=== PATIENT | male | born 1940 ===

== ENCOUNTER 2017-11-12 06:48 | Day surgery (SDC) | payer OTHER ==
[2017-11-07 10:41] VITALS: BMI 29.6
[2017-11-12] MEDS ORDERED: Lidocaine 2% Jelly (Uro-Jet) ONE (07:38)
[2017-11-12] MEDS ORDERED: cefTRIAXone 1 gm 1 GM/100 ML BAG IVPB ONE (07:38)
[2017-11-12] MEDS ORDERED: Midazolam 2 MG/2 ML VIAL ONE (07:59)
[2017-11-12] MEDS ORDERED: Propofol 10 mg/ml Inj (20 ML) ONE (07:59)
[2017-11-12] MEDS ORDERED: Oxycodone/Acetaminophen 5/325 mg Tab PO PRN (08:40)
[2017-11-12 12:40] VITALS: BP 156/76; PULSE 52; RESP 17; TEMP 97.3; O2SAT 98
--- NOTE | 2017-11-12 20:54 | HP ---
REASON FOR ADMISSION: Workup of bladder tumor. HISTORY OF PRESENT ILLNESS: Very pleasant gentleman in lot of voiding dysfunction, just 77-year-old on 11/01/2017. He has voiding dysfunction. We had previously done much work on him. His prostate is fairly open. See previous notes in that regard; however, last cystoscope because he still has complaints, is abnormal area of mucosa and he is here today for TURBT. We need to rule out transitional cell carcinoma or carcinoma in situ. PAST MEDICAL HISTORY AND SURGICAL HISTORY: Listed in the chart. 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 REVIEW OF SYSTEMS: Listed above. Noncontributory. No weight loss, chest pain or shortness of breath. No constitutional complaints. MEDICATIONS: He is on aspirin, losartan and he is on a statin. ALLERGIES: NO ALLERGIES. PHYSICAL EXAMINATION: GENERAL: A well-nourished male, in no apparent distress. VITAL SIGNS: Within normal limits, included in the chart. LUNGS: Clear. HEART: Normal S1 and S2. ABDOMEN: Overall soft. Nontender. No flank mass appreciated. No CVA tenderness. No evidence of acute abdomen. GENITOURINARY: Normal phallus without discharge. No testicular mass. RECTAL: 30 g prostate. Smooth. LABORATORY DATA: See chart. DIAGNOSES: Voiding dysfunction, decreased flow stream, irritating and obstructive complaints of dysuria and a bladder mass. PLAN: Plan for a cystoscope with anesthesia, bladder biopsy and fulguration and a TURBT, then further plans will follow. ADDENDUM: See the progress note, see the operative note. We were able to successfully remove what we saw as abnormal. Further plans are to follow depending on what the pathology shows. Ender Panchal MD
--- NOTE | 2017-11-13 07:28 | OP ---
PROCEDURE DATE: 11/12/2017 UROLOGY OPERATIVE NOTE PREOPERATIVE DIAGNOSES: Bladder mass, hematuria, voiding dysfunction, irritative and obstructive complaints, more irritative. POSTOPERATIVE DIAGNOSES: Bladder mass, hematuria, voiding dysfunction, irritative and obstructive complaints, more irritative, rule out transitional cell carcinoma, carcinoma in situ. SURGEON: Ender Panchal MD PROCEDURE: Cystoscopy, bladder biopsy and fulguration, and a separate TURBT. COMPLICATIONS: There were no complications. See the gross photographs. The findings are as follows: BLOOD LOSS: 10 mL. SPECIMENS: 1. Bladder biopsy from a cold-cup biopsy (see the body of the report for details there). 2. TUR resection. There is no complication at the termination of the procedure, and there are no visible lesions. There are some other areas of bladder that are erythematous, you can see the picture of the gross photographs. DRAINS: Blanton catheter is 20-[place]. Blanton catheter with about 20 mL balloon. UROLOGY FINDINGS: 1. Normal anterior urethra, no strictures. 2. The verumontanum is relatively visually open. See the pictures. The veru, in fact, is not still well defined. It is fairly open (he has had multiple works before and it reflected in these findings). See the picture. 3. The ureteral orifices show clear efflux both sides. Both sides pictures taken. 4. On the posterior wall of the bladder, there is abnormal mucosa, it is red, erythematous. We did biopsy with fulguration. ESTIMATED BLOOD LOSS: 5 mL The first specimen taken was the bladder biopsy, a cold-cup biopsy, then we had difficulty opening the forceps., and we have essentially working on to gap specimen. We did a separate specimen with the TUR resection ( the subtle difference will be the gaps and also the other subtle difference will be the cautery artifact), but this was our second specimen. We are still working on as on the time of this dictation. There were no complication, we left a Blanton. DESCRIPTION OF PROCEDURE: The patient brought to the OR and placed on the table. Routine monitor was placed. Time-out was called to confirm the patient's position. Antibiotic prophylaxis was used. Medical clearance was obtained from Dr. Haro. This is on the chart as well, he signed off. The procedure continues in the following fashion: We introduced the cystoscope via the urethra. Anterior urethra was normal. No strictures. The verumontanum is visually minimally occlusive. It is essentially, but ____. See the multiple pictures. ____ picture all demonstrate he has previous work in his prostate. It is not wide open, but it is not visually occlusive, it is somewhere in between. Bladder neck is reasonably opened. Bladder was inspected carefully. Urethral orifices show clear efflux on both sides. Pictures were taken and saved, On the posterior wall, there were some abnormal areas of redness what looked a lesion, it is not overly raised. I took multiple pictures. I am looking at them while dictating. There are just three or four areas of particular erythema, so I just went . The first picture on the gross pictures shows the very abnormal areas. The last two pictures show this as well. I am looking after print of the postop pictures, as well, what we biopsied and fulgurated. From review, again, the noted lesions, the prostate is relatively open, it is not needed, but it not wide open. I just have to mention the ureteral orifices are also captured in these pictures as well. The procedure continued. We did a biopsy of these abnormal areas, a cold-cup biopsy. The forceps, got stuck at this point. We are working on sending that as specimen #1 ____ to resectoscope to go one layer deeper. We did this smoothly, gently, carefully and then we cauterized the base. We made sure there was no bleeding ( especially, ____ we do not want to stop it. For the procedure, we cauterized well to make sure there was no bleeding). We inserted a Blanton catheter via the urethra. The urine is clear and sent out the patient to the recovery room in stable condition. I just to want to mention, on rectal exam, 20 to 30 g prostate, soft and smooth. The patient tolerated the procedure without complication. Ender Panchal MD
== END 2017-11-12 11:32 | disposition home or self-care (01) ==
LOC: C.SDS 06:48
PROVIDERS: ATTEND Urology
DX: D49.4 Neoplasm of unspecified behavior of bladder (principal); N30.81 Other cystitis with hematuria
CPT/HCPCS: 52204; 88305; J0696